=== PATIENT | female | born 1985 | race Caucasian/White ===

== ENCOUNTER 2022-01-14 10:52 | Outpatient (CLI) | payer OTHER, SELFPAY ==
--- NOTE | 2022-01-14 11:41 | CRLHL7_ITS ---
For Patients: As a result of the Century Cures Act, medical imaging exams and procedure reports are released immediately into your electronic medical record. You may view this report before your referring provider. If you have questions, please contact your health care provider. CLINICAL HISTORY: IUD check TECHNIQUE: 2D hidalgo scale and color Doppler images were acquired of the pelvis using a transvaginal approach. FINDINGS: On transvaginal imaging, the myometrium has a heterogeneous echotexture. There may be a fibroid in the uterine fundus. Intrauterine device located in good position within the endometrial canal. The left ovary measures 3.5 x 2.2 x 2.6 cm in size and the right ovary measures 3.0 x 1.3 x 1.4 cm. The ovaries demonstrate normal arterial and venous blood flow on color Doppler analysis. There are no suspicious fluid collections within the cul-de-sac. Trace physiologic free fluid noted. Simple left ovarian cyst is present measuring 2.3 x 1.7 x 2.2 cm. IMPRESSION: Normal position of the intrauterine device within the endometrial canal. Dictated by Davonte Barclay MD @ 01/14/2022 12:20:47 PM (Electronically Signed)
== END 2022-01-14 10:53 | disposition home or self-care (01) ==
PROVIDERS: Visit Provider Advanced Practice Midwife
DX: Z30.431 Encounter for routine checking of intrauterine contraceptive device (principal)
CPT/HCPCS: 76830

== ENCOUNTER 2023-06-11 08:01 | Emergency (ER) | payer OTHER, SELFPAY ==
[2023-06-11 08:08] VITALS: BP 107/70; PULSE 73; RESP 18; TEMP 36.7; O2SAT 100; BMI 24.9
--- NOTE | 2023-06-11 08:20 | CRLHL7_ITS ---
For Patients: As a result of the Cures Act, medical imaging exams and procedure reports are released immediately into your electronic medical record. You may view this report before your referring provider. If you have questions, please contact your health care provider. INDICATION: Right lower quadrant pain. TECHNIQUE: CT abdomen and pelvis acquired with 71 cc Isovue 370 IV contrast. COMPARISON: None. FINDINGS: Lower chest: Unremarkable. Liver: Unremarkable. Normal in size and attenuation. No suspicious masses. Gallbladder and bile ducts: Unremarkable. No stones or inflammation. No biliary dilatation. Pancreas: Unremarkable. No mass or inflammation. Spleen: Unremarkable. Normal in size. No masses. Adrenal glands: Unremarkable. No nodules. Kidneys: Unremarkable. No suspicious masses, stones, or hydronephrosis. GI tract: No acute findings. Normal caliber. No sign of inflammation. Multiple appendicolith ranging in size between 4 and 6 mm. Vasculature: Abdominal aorta is normal in caliber. Mesenteric arteries are patent. Lymph nodes: No lymphadenopathy. Peritoneum/Abdominal Wall: Unremarkable. No sign of mass or infiltration. No free air or significant free fluid. Pelvis: 2.3 cm right ovarian corpus luteum. T-shaped IUD within the central uterus. Bones: Unremarkable for age. IMPRESSION: Multiple appendicoliths. No evidence of acute appendicitis, however. Right ovarian corpus luteum. No evidence of hemoperitoneum to indicate a ruptured corpus luteal cyst. Please note that all CT scans at this facility use dose modulation, iterative reconstruction, and/or weight-based dosing when appropriate to reduce radiation dose to as low as reasonably achievable. Dictated by Bjorn Gore MD @ 06/11/2023 9:39:19 AM (Electronically Signed)
--- NOTE | 2023-06-11 08:21 | ED_ITS ---
HPI - Abdominal Pain General Date Seen: 06/11/23 Chief Complaint: Abdominal Pain Stated Complaint: abdominal pain Time Seen by Provider: 06/11/23 08:02 Source: patient Mode of arrival: ambulatory Limitations: no limitations History of Present Illness HPI narrative: patient is a 37-year-old female with no pertinent medical issues presenting to emergency department for lower abdominal pain. She says the pain is all across her lower abdominal region. She initially thought she was constipated at all and a mild home without improvement in her symptoms. Says the pain woke her up at 05:00 and has not gotten any better. Has never had pain like this. Only previous abdominal surgeries Were for C-sections. denies fevers, chills, lightheadedness, dizziness, diarrhea, chest pain, weakness, numbness , dysuria, polyuria. Is not aware of any sick contacts. Has not taken anything for pain yet. She has not had any associated nausea Related Data Home Medications Medication Instructions Recorded Confirmed levonorgestrel 21 mcg/24 hours (8 1 device intrauterine ONCE 01/14/22 08/24/22 yrs) 52 mg intrauterine device (Mirena) Previous Rx's Medication Instructions Recorded sumatriptan succinate 50 mg tablet 50 mg PO .PRN PRN migraine 02/01/23 headache #9 tabs Allergies Allergy/AdvReac Type Severity Reaction Status Date / Time No Known Drug Allergies Allergy Verified 01/14/22 10:28 Review of Systems Status of ROS Reports: 10 or more systems reviewed and unremarkable except as noted in History and below PFSH PFS Social History Smoking Status: Never smoker How often do you have a drink containing alcohol: monthly or less How many standard drinks containing alcohol do you have on a typical day: 1 or 2 How often do you have six or more drinks on one occasion: Never AUDIT-C Alcohol total score: 1 Non-prescribed substance use: denies use Little interest or pleasure in doing things: several days Feeling down, depressed, or hopeless: several days Exam Narrative: Exam Narrative: Const: Well-nourished, Well-developed, in mild distress Eyes: PERRL, no conjunctival injection, and symmetrical lids HENT: Atraumatic external nose and ears. Moist mucous membranes. Neck: Symmetric, trachea midline, No thyromegaly. CVS: RRR, No murmurs or gallops. Peripheral pulses 2+ and equal in all extremities RESP: Unlabored respiratory effort. Clear to auscultation bilaterally. GI: Tenderness to right lower quadrant around McBurney's point, Nondistended, No rebound or guarding. MSK:Extremities w/o deformity, Normal Active ROM Skin: Warm, Dry. No rashes or lesions. Neuro: Normal Muscle tone, No focal neurological deficits. Psych: Awake, Alert, & Oriented x3. Appropriate mood and affect. Const: Vital Signs, click to edit/add: Vital Signs - 24 hr 06/11/23 08:08 06/11/23 08:45 06/11/23 10:07 Temperature 98.0 F Pulse Rate [Right Pulse Oximeter] 73 71 Respiratory Rate 18 16 Blood Pressure [Ri ght Upper Arm] 107/70 113/71 Pulse Oximetry 100 99 96 Oxygen Delivery Me thod Room Air Room Air 06/11/23 12:24 Temperature Pulse Rate [Right Pulse Oximeter] 81 Respiratory Rate Blood Pressure [Ri ght Upper Arm] 115/68 Pulse Oximetry 100 Oxygen Delivery Me thod Room Air Course Vital Signs Vital signs: Initial Vital Signs Temperature 98.0 F 06/11/23 08:08 Temperature Source Temporal Artery Scan 06/11/23 08:08 Pulse Rate 73 06/11/23 08:08 Respiratory Rate 18 06/11/23 08:08 Blood Pressure 107/70 06/11/23 08:08 Blood Pressure Mean 82 06/11/23 08:08 Blood Pressure Position Sitting 06/11/23 08:08 Pulse Oximetry 100 06/11/23 08:08 Oxygen Delivery Method Room Air 06/11/23 08:08 Vital Signs Temperature 98.0 F 06/11/23 08:08 Pulse Rate 73 06/11/23 08:08 Respiratory Rate 18 06/11/23 08:08 Blood Pressure 107/70 06/11/23 08:08 Pulse Oximetry 100 06/11/23 08:08 Oxygen Delivery Method Room Air 06/11/23 08:08 Temperature 98.0 F 06/11/23 08:08 Pulse Rate 81 06/11/23 12:24 Respiratory Rate 16 06/11/23 10:07 Blood Pressure 115/68 06/11/23 12:24 Pulse Oximetry 100 06/11/23 12:24 Oxygen Delivery Method Room Air 06/11/23 12:24 Medications Administered Medications: Discontinued Medications Generic Name Dose Route Start Last Admin Trade Name Laura PRN Reason Stop Dose Admin Ketorolac Tromethamine 15 mg 06/11/23 09:52 06/11/23 09:58 Ketorolac 15 Mg/Ml Inj IVP 06/11/23 09:53 15 mg ONCE ONE Administration Morphine Sulfate 4 mg 06/11/23 08:20 06/11/23 08:42 Morphine 4 Mg/Ml Inj IM 06/11/23 08:21 Not Given ONCE ONE Morphine Sulfate 4 mg 06/11/23 08:38 06/11/23 08:41 Morphine 4 Mg/Ml Inj IVP 06/11/23 08:39 4 mg ONCE ONE Administration Ondansetron HCl 4 mg 06/11/23 08:20 06/11/23 08:41 Ondansetron 2 Mg/Ml Inj IVP 06/11/23 08:21 4 mg ONCE ONE Administration MDM - Abdominal Pain MDM Narrative Medical decision making narrative: patient is a 37-year-old female with sudden onset right lower quadrant abdominal pain awoke her up from her sleep. No previous abdominal surgeries. Present amount no improvement in her symptoms. She still has appendix as far she is aware. She does have tenderness to the right lower quadrant more specifically McBurney's point. At this time I a.m. concern for appendicitis. Really no pelvic pain it seems like being ovarian torsion is unlikely. Could also be cystitis. Water CBC, CMP, lipase, covid/ flu, urinalysis, test. CT scan with IV contrast also ordered. Morphine given for pain and Zofran for potential nausea. Cbc, CMP, lipase, urinalysis, COVID/flu all returned showing no concerning abnormalities. CT shows me multiple appendicoliths but no signs of acute appendicitis. Within normal white count this is making it appendicitis much more unlikely. She does have a 2.3 cm right corpus luteum cyst. This is rolled to the small it still could be causing his symptoms and we will order a ul trasound to better evaluate it. Ultrasound returned showing a normal appearing ovaries but they were able to see the appendix and there is concern it could be appendicitis. Recommend surgical consultation. I spoke to Dr. Carias about this patient. She states the patient is relatively early with symptoms called she and we just my not be seeing the signs of appendicitis yet due to that. Also could just not be appendicitis. She does not want to take a person surgery who does not definitely need it. She said options include admission for observation versus discharge home with close outpatient follow-up and strict return precautions. I spoke to the patient about these 2 options and they would prefer to be discharged home at this time. Dr. Carias and I agreed to starting the patient on antibiotics and the patient want Toradol for pain which was prescribed. I spoke along to the patient about worsening symptoms and other concerning symptoms to watch out for the could be a sign of appendicitis into have a low threshold to return to the emergency department. Her and her are agreeable to this and state they understand. She will be discharged home. Lab Data Labs: Lab Results 06/11/23 06/11/23 Range/Units 08:20 08:35 WBC 10.73 (4.50-11.00) K/uL RBC 4.62 (4.00-5.20) m/uL Hgb 14.1 (12.0-16.0) gm/dL Hct 41.7 (33.0-51.0) % MCV 90 (80-100) fL MCH 31 (26-34) pg MCHC 34 (32-36) gm/dL RDW Coeff of [place] 11.9 (11.5-15.5) % Plt Count 209 (140-440) K/uL Neut % (Auto) 80.0 H (42.0-72.0) % Lymph % (Auto) 13.5 L (20-44) % [place] % (Auto) 5.2 (0.0-11.0) % Eos % (Auto) 0.8 (0.0-7.0) % Baso % (Auto) 0.3 (0.0-3.0) % Neut # (Auto) 8.60 H (1.7-7.0) K/uL Lymph # (Auto) 1.40 (0.90-2.90) K/uL [place] # (Auto) 0.60 (0.00-0.90) K/UL Eos # (Auto) 0.09 (0.00-0.50) K/uL Baso # (Auto) 0.03 (0.00-0.30) K/uL Abs Immat Gran (auto) 0.02 (0.00-0.30) K/uL Imm/Tot Granulo (auto) 0.2 % Sodium 136 (135-149) mmol/L Potassium 4.0 (3.6-5.1) mmol/L Chloride 105 (96-114) mmol/L Carbon Dioxide 23 (20-32) mmol/L Anion Gap 8 (7-15) mEq/L BUN 13 (5-24) mg/dL Creatinine 0.7 (0.5-1.5) mg/dL Estimated Creat Clear 94.10 Estimated GFR 113 ml/min Glucose 103 (60-115) mg/dL Calcium 8.9 (8.4-10.6) mg/dL Total Bilirubin 1.2 (0.1-1.5) mg/dL AST 22 (12-35) U/L ALT 15 (4-35) U/L Alkaline Phosphatase 33 L (40-150) U/L Total Protein 7.2 (6.0-8.3) g/dL Albumin 4.6 (3.3-5.0) g/dL Lipase 79 (23-300) U/L Urine Color Yellow (Yellow) Urine Appearance Slightly Cloudy A (Clear) Urine pH 5.5 (5.0-8.5) Ur Specific [place] 1.025 (1.000-1.030) Urine Protein Negative (Negative) Urine Glucose (UA) Negative (Negative) Urine Ketones Negative (Negative) Urine Blood Trace-intact A (Negative) Urine Nitrite Negative (Negative) Urine Bilirubin Negative (Negative) Urine Urobilinogen 0.2 (0.2-1.0) Ur Leukocyte Esterase Trace A (Negative) Urine RBC 2-5 A (0-2) Urine WBC 2-5 (0-5) Urine WBC Clumps None (None) Ur Squamous Epith Cells Few (None-Few) Urine Bacteria Few A (None) Urine HCG, Qual Negative (Negative) SARS-CoV-2 (PCR) Negative SARS-CoV-2 (Negative) Influenza Type A (PCR) Negative PCR FLU A (Negative) Influenza Type B (PCR) Negative PCR FLU B (Negative) Imaging Data CT scan abdomen and pelvis: Radiologist's impression: Multiple appendicoliths. No evidence of acute appendicitis, however. Right ovarian corpus luteum. No evidence of hemoperitoneum to indicate a ruptured corpus luteal cyst. Please note that all CT scans at this facility use dose modulation, iterative reconstruction, and/or weight-based dosing when appropriate to reduce radiation dose to as low as reasonably achievable. Dictated by Bjorn Gore MD @ 06/11/2023 9:39:19 AM ECG Data Attestation: I personally reviewed and interpreted this ECG as follows: Prior ECG tracings: not available for review Interpretation: normal sinus rhythm the rate 62 beats per minute, normal intervals, normal axis, no ST or T-wave abnormalities. Discharge Plan Discharge Clinical Impression: Abdominal pain Qualifiers: Abdominal location: right lower quadrant Qualified Code(s): R10.31 - Right lower quadrant pain Patient Disposition: Home, Self-Care Condition: Improved Instructions: Abdominal Pain (ED) Additional Instructions: You will be discharged home with Toradol and Augmentin from instymeds. I spoke to Dr. Carias of general surgery. She states at this time is difficult to say if this is appendicitis or not. Incident urine otherwise healthy young female it is reasonable to let you discharged home. Take the medication as prescribed. If symptoms persist over the next day or 2 return to the emergency department for re-evaluation. Also return for fever, nausea, or any other symptoms that you are concerned about. Have a low threshold to return to the emergency department. Dr. Carias states she will try and get her office to follow-up with you on either Tuesday or Tuesday. If symptoms have fully resolved you not need to follow-up with her. With the antibiotics symptoms might go way then come back in a week so be aware over the next couple weeks. Do not take any other NSAIDs when you are taking Toradol. Prescriptions: No Action Mirena 20 mcg/24 hours (7 yrs) 52 mg intrauterine device 1 device intrauterine ONCE Rx Instructions: as a single dose sumatriptan succinate 50 mg tablet 50 mg PO .PRN PRN (Reason: migraine headache) Qty: 9 5RF Rx Instructions: ONE TAB AT ONSET OF HEADACHE, MAY REPEAT Q2H PRN, MAX 200 MG/24 HRS Follow Up/Referrals: Taurus Alicea PA-C [Primary Care Provider] - Stand Alone Forms: [employer] Info Instructions
--- OUTSIDE RECORDS SUMMARY | 2023-06-11 08:29 | XMS_ITS | Continuity of Care Document ---
Author Name Unknown Organization [facility] Address [address] [address] [place] [address] Phone Care Team Providers Care Wastewater Operator Name Role Phone Link Eric VILLA Unavailable Unavailable Allergies, Adverse Reactions, Alerts Substance Reaction Status Criticality No Known allergies Medications Medication Instructions Dosage Effective Dates (start - stop) Status Comments Probiotic 10 billion cell capsule take 1 Tablet by Oral route every day 1 Tablet - Active Culturelle 10 billion cell capsule take 1 Tablet by Oral route every day 1 Tablet - Active docusate sodium 100 mg capsule take 3 by Oral route 1times every day - Active FiberCon 625 mg tablet take 4 tablets orally everyday - Active OMEGA-3 (unknown strength) take 2 tablets everyday Not Available - Active multivitamin capsule take 1 capsule by oral route every day - Active Procedures Procedure Date Offic/outpt E&m New Mod Sever 2 Routine Serum Collection [id number] Basic Metabolic Panel Thyroid Stim Hormone Results Test Name Date and Time Measure Units Reference Range Abnormal Flag Status Comments Panel Description: Basic Metabolic Panel Final Calcium, Serum 2011 15:56:5 1 8.3 mg/dl 8.5-10.1 L Final Carbon Dioxide, Total 2011 15:56:5 1 27 mmol/L 21-32 Final Chloride, Serum 2011 15:56:5 1 105 mmol/L 98-107 Final Creatinine, Serum 2011 15:56:5 1 0.80 mg/dl 0.60-1.30 Final Glucose, Serum 2011 15:56:5 1 97 mg/dl 74-100 Final Potassium, Serum 2011 15:56:5 1 4.1 mmol/L 3.5-5.1 Final Sodium, Serum 2011 15:56:5 1 141 mmol/L 136-145 Final BUN 2011 15:56:5 1 14 mg/dl 5-22 Final BUN/Creatinine Ratio 2011 15:56:5 1 17.50 10.00-20.00 Final eGFR If Africn Am 2011 15:56:5 1 > 60 > 60 Final This calculati on is for Keerthi patients eGFR If NonAfricn Am 2011 15:56:5 1 > 60 > 60 Final This calculati on is for Non Keerthi patients ANGAP 2011 15:56:5 1 13.10 8.00-16.00 Final Panel Description: TSH Final TSH 2011 15:56:5 1 0.59 uIU/ml 0.36-5.00 Final Panel Description: IgA+t-Murray Final Immunoglobulin A, Qn, Serum 2011 13:19:0 0 102 mg/dL 70-400 Final Effective March 20, 2012, the reference interval for Immunoglobulin A, Qn, Serum will be changing to: 0 - 11 months 11 - 58 1 - 2 years 20 - 101 3 - 6 years 44 - 189 7 - 12 years 62 - 236 13 - 17 years 77 - 278 18 years and older 91 - 414Performed by:Sean Christy ([facility]) t-Transglutaminas e (tTG) IgA 2011 14:41:0 0 <2 U/mL 0-3 Final Negative 0 - 3 Weak Positive 4 - 10 Positive >10 . Tissue Transglutaminase (tTG) has been identified as the endomysial antigen. Studies have demonstr- ated that endomysial IgA antibodies have over 99% specificity for gluten sensitive enteropathy.Perfor med by:Sean TOMPKINS) Advance Directives Directive Yes / No Effective Date File Name Resuscitation Not Answered N/A N/A Life Support Not Answered N/A N/A Intubation Not Answered N/A N/A Antibiotics Not Answered N/A N/A IV Fluid Support Not Answered N/A N/A Tube Feed Not Answered N/A N/A Other Directive N/A N/A WARNING:The information contained in this section is historical and is provided for information only and does not constitute a legal document or any assurance that the information is still accurate. Please verify the information with the woods of the legal document before using it for clinical purposes. Encounters Encounter Description Practice Location Reason(s) For Visit Diagnoses Date Provider Providers Copied on Encounter Offic/outpt E&m New Mod Sever [facility], [address] [address], [place], [place], [id number], [place] tel:[phone] [facility] Irritable Bowel Syndrome (chief complaint) Constipation Unspecified Link MD Reyes. [address], [place], [place], [id number], [place]. tel:[phone] Referring Provider: Referral Self, USE FOR SELF REFERRALS. Family History Family Member Type Diagnosis Age At Onset First degree family history Problem (finding) No history of Cancer, colon First degree family history Problem (finding) No Family history of No history of Colon Polyps First degree family history Problem (finding) No history of Crohn's First degree family history Problem (finding) No history of Ulcerative Colitis Payers Payer name Insurance type Covered republican ID Dmitriy leonard(s) Tony [id number] Social History Type Description Quantity Date Captured Comments Alcohol Use Details Caffeine Use Details Unknown Tobacco Use Status No Information Smoking Status No Information Sex Female Chief Complaint And Reason For Visit From encounter dated '02/14/2012 15:30'. Irritable Bowel Syndrome (chief complaint) Reason For Referral Reason For Referral No Information History Of Present Illness Encounter Date Complaint History Of Prese nt Illness No Information Functional Status Date Functional Assessmen t No Information Instructions Date Instruction Additional Infor mation No Information Assessments Type Assessment Date No Information Patient Care Teams Name Effective Dates (start - stop) Status Members No Information
[2023-06-11 08:37] LABS: Appearance Urine Slightly Cloudy (Clear); Bilirubin Urine Negative (Negative); Blood Urine Trace-intact (Negative); Color Urine Yellow (Yellow); Glucose Urine Negative (Negative); Ketones Urine Negative (Negative); Leukocyte Esterase Urine Trace (Negative); Nitrite Urine Negative (Negative); Protein Urine Negative (Negative); Specific Gravity Urine 1.025 (1.000-1.030); Urobilinogen Urine 0.2 (0.2-1.0); pH Urine 5.5 (5.0-8.5)
[2023-06-11 08:38] LABS: Ur HCG Qualitative* Negative (Negative)
[2023-06-11] MEDS: ONDANSETRON 2 MG/ML inj 4 MG IVP (08:41)
[2023-06-11] MEDS: MORPHINE 4 MG/ML INJ IVP (08:41)
[2023-06-11 08:45] VITALS: O2SAT 99
[2023-06-11 08:47] LABS: Basophils Absolute Auto 0.03 K/uL (0.00-0.30); Basophils Percent Auto 0.3 % (0.0-3.0); Eosinophils Absolute Auto 0.09 K/uL (0.00-0.50); Eosinophils Percent Auto 0.8 % (0.0-7.0); Hematocrit 41.7 % (33.0-51.0); Hemoglobin* 14.1 gm/dL (12.0-16.0); Immature Granulocytes Abs Auto 0.02 K/uL (0.00-0.30); Immature Granulocytes Pct Auto 0.2 %; Lymphocytes Percent Auto 13.5 % (20-44); Mean Corpuscular HGB Conc 34 gm/dL (32-36); Mean Corpuscular Hemoglobin 31 pg (26-34); Mean Corpuscular Volume 90 fL (80-100); Monocytes Percent Auto 5.2 % (0.0-11.0); Platelet Count* 209 K/uL (140-440); RDW Coefficient of Variation % 11.9 % (11.5-15.5); Red Blood Count 4.62 m/uL (4.00-5.20); White Blood Count* 10.73 K/uL (4.50-11.00)
[2023-06-11 08:48] LABS: Squamous Epithelial Cell Urine Few (None-Few)
[2023-06-11 08:49] LABS: Slide Review Reflex No
[2023-06-11 08:51] LABS: Bacteria Urine Few
[2023-06-11 08:58] LABS: Albumin* 4.6 g/dL (3.3-5.0); Chloride* 105 mmol/L (96-114); Sodium* 136 mmol/L (135-149)
[2023-06-11 09:00] LABS: Creatinine* 0.7 mg/dL (0.5-1.5); Estimated Glomerular Filt Rate 113 ml/min
[2023-06-11 09:01] LABS: Alanine Aminotransferase* 15 U/L (4-35); Alkaline Phosphatase* 33 U/L (40-150); Anion Gap 8 mEq/L (7-15); Aspartate Amino Transferase* 22 U/L (12-35); Bilirubin Total* 1.2 mg/dL (0.1-1.5); Blood Urea Nitrogen* 13 mg/dL (5-24); Calcium* 8.9 mg/dL (8.4-10.6); Carbon Dioxide* 23 mmol/L (20-32); Glucose* 103 mg/dL (60-115); Lipase* 79 U/L (23-300); Total Protein* 7.2 g/dL (6.0-8.3)
[2023-06-11 09:39] LABS: PCR FLU A Negative PCR FLU A (Negative); PCR FLU B Negative PCR FLU B (Negative)
[2023-06-11 09:41] LABS: SARS PCR* Negative SARS-CoV-2 (Negative)
[2023-06-11] MEDS: KETOROLAC 15 MG/ML inj IVP (09:58)
[2023-06-11 10:07] VITALS: BP 113/71; PULSE 71; RESP 16; O2SAT 96
--- NOTE | 2023-06-11 10:07 | CRLHL7_ITS ---
For Patients: As a result of the Century Cures Act, medical imaging exams and procedure reports are released immediately into your electronic medical record. You may view this report before your referring provider. If you have questions, please contact your health care provider. INDICATION: RLQ PAIN HISTORY: Right lower quadrant abdominal pain. COMPARISON: CT of the abdomen pelvis, 06/11/2023. TECHNIQUE: Pelvic ultrasound. Transabdominal imaging of the pelvis was obtained. Color/spectral Doppler was performed to evaluate for ovarian torsion. Findings: Uterine corpus measures 7.6 x 3.4 x 4.5 cm. There is no endometrial or myometrial mass. IUD, which appears in expected position. The right ovary measures 4.4 x 2.4 x 2.8 cm. Left ovary measures 3.0 x 1.6 x 2.1 cm. There is no evidence on grayscale imaging, or color/spectral Doppler, for ovarian torsion. No significant free fluid in the pelvis. The region of pain corresponds with a blind-ending tubular structure with foci posterior acoustic shadowing. These are consistent with appendicoliths, and correlate well with the CT from 06/11/2023. These findings are suspicious for appendicitis. Suggest surgical consultation the correlation with the presence or absence of leukocytosis. Impression: 1. No evidence on grayscale imaging, or color/spectral Doppler, for ovarian torsion. 2. There is borderline dilation of the appendix, with multiple appendicoliths. Given the history of right lower quadrant pain, appendicitis should be considered. Surgical consultation is suggested. 3. There is no adnexal mass or significant free fluid in the rectovaginal pouch of Cristóbal. 4. Case reviewed with Dr. Javed, ELOISE, 06/11/23, 1331 hours. Dictated by Alejandro Bellamy MD @ 06/11/2023 1:32:27 PM Dictated by: Alejandro Bellamy MD @ 06/11/2023 13:32:39 (Electronically Signed)
[2023-06-11 12:24] VITALS: BP 115/68; PULSE 81; O2SAT 100
[2023-06-11 14:10] VITALS: BP 106/71; PULSE 78; RESP 16; TEMP 36.8; O2SAT 98
--- NOTE | 2023-06-11 15:27 | PM.EN ---
Chart Event Note Chart Event Note: Called by the ED regarding this patient with several hours of right lower quadrant pain - Images and radiology read reviewed. CT shows appendicoliths but no dilation or inflammation. Ultrasound done to evaluate ovaries showed a borderline dilated appendix. No fever or WBC though WBC is 10 - upper limits of normal. Very possibly could represent early appendicitis as symptoms started only about 7 hours prior. Discuss[address] with Dr. Javed options of admission for observation or having patient return to be seen if symptoms persist or worsen within the next day. Patient opted to d/c home. She was given toradol and antibiotics. If she does not return to the ER, I will check in with her on Tuesday from clinic to see if an appointment is needed. I did not examine the patient on this date.
== END 2023-06-11 14:12 | disposition home or self-care (01) ==
PROVIDERS: Emergency Provider Student in an Organized Health Care Education/Training Program; PCP Physician Assistant Medical
DX: R10.9 Unspecified abdominal pain (principal)
CPT/HCPCS: 36415; 74177; 76856; 80053; 81001; 81025; 83690; 85025; 87086; 87631; 93005; 93976; 94761; 96372; 96374; 96375; 99283; 99284; 99285; J1885; J2270; J2405; Q9967

== ENCOUNTER 2023-06-14 10:41 | Day surgery (SDC) | payer OTHER, SELFPAY ==
[2023-06-14] VITALS (10 sets, daily range): BP systolic 99–123; BP diastolic 69–79; PULSE 55–85; RESP 14–16; TEMP 36.4–36.6; O2SAT 98–100; BMI 24.9
[2023-06-14] MEDS: LACTATED RINGERS 1000 ML 1,000 ML 100 ML IV (11:00)
[2023-06-14] MEDS: SODIUM CHLORIDE 0.9 % (FLUSH) 10 ML SYRINGE IVF (11:00)
[2023-06-14] MEDS: PIPERACILLIN/TAZOBACTAM 3.375 GM INJ IVPB (12:05)
--- NOTE | 2023-06-14 12:19 | W.ANESCHARGE ---
Anesthesia Charges Start Date/Time Anesthesia Start Date: 06/14/23 Anesthesia Start Time: 11:48 Stop Date/Time Anesthesia Stop Date: 06/14/23 Anesthesia Stop Time: 12:48
--- NOTE | 2023-06-14 12:23 | W.ANESCHARGE ---
Anesthesia Charges Start Date/Time Anesthesia Start Date: 06/14/23 Anesthesia Start Time: 11:48 Stop Date/Time Anesthesia Stop Date: 06/14/23 Anesthesia Stop Time: 12:48
[2023-06-14] MEDS: BUPIVACAINE 0.25% 30 ML INJECTION (12:31)
--- NOTE | 2023-06-14 12:44 | P.GSOP_ITS ---
Operative Note Pre-op diagnosis: Acute appendicitis Post-op diagnosis: same Type of Procedure: Laparoscopic appendectomy Indications: The patient is a 37-year-old female who presented to the emergency department with right lower quadrant pain. workup revealed on ultrasound a upper limits of normal dilated appendix at the area of her pain. White count was normal in CT was unremarkable except for appendicolith and therefore she was sent home on antibiotics with instructions to follow up if symptoms are not resolved. She had improved, however when she was seen in clinic today she still did have quite a bit of tenderness in the right lower quadrant on palpation. We discussed options and, after discussion of risks and benefits, we mutually decided upon appendectomy as the appropriate next step. Procedure Description: After discussing the risks and benefits of the procedure, the patient signed informed consent.? The operative site was marked and the patient was brought to the operating room and placed on the operating table in supine position.? Care was taken to pad the patient's pressure points.?? The patient was then intu bated by anesthesia.?? The operative site was then prepped and draped in the usual sterile fashion.? A time-out was then performed. Entrance to the abdomen was obtained via a 5 mm optical trocar in the left upper quadrant. The abdomen was insufflated and briefly surveyed for any signs of injury. There were none. A 12 mm port was placed inferior to the umbilicus as well as a 5 mm port in the left lower quadrant. Both were done under direct vision. The patient was then placed in Trendelenburg position with the right side up. The small bowel was gently moved out of the way and the appendix was in view. It was mildly dilated however did not appear to be markedly inflamed. The appendix was grasped and pulled into view. A mesenteric window was created between the base of the appendix and the mesoappendix. An Endo-ELOY purple load stapler was then used to transect the appendix at its base. A vascular load stapler was then used to divide the mesoappendix. The staple lines were inspected for bleeding. There was none. The appendix was then removed from the abdomen using an Endo-Catch bag. The specimen was sent to pathology. I then ran the small bowel distal from the ligament of Treitz approximately 100 cm. There was no evidence of Meckel's diverticulum or any inflammation in the mesentery. I examined both ovaries. There was no hemorrhagic cyst. No purulence or inflammation in the pelvis. The uterus was examined. There was no obvious abnormality here. There was a small amount of serous fluid in the pelvis. the gallbladder also similarly appeared normal and soft. The abdomen was desufflated and the ports removed. The 12 mm port site fascia was closed with 0 Vicryl. The skin was then closed with absorbable subcuticular suture. Sterile dressings were then applied. Instrument sponge and needle counts were correct at the end of the case. The patient was then woken and transported to the PACU in stable condition. ? The patient tolerated the procedure well. Findings: Mildly dilated appendix. Small amount of serous fluid in the pelvis. No other inflammation to explain right lower quadrant pain. Anesthesia: GETA Surgeon: Penelope Carias MD Estimated blood loss (mL): 5 Specimen: Appendix Condition: stable Disposition: PACU Date of procedure: 06/14/23
[2023-06-14] MEDS: HYDROCODONE-ACETAMIN 5-325 MG 1 TAB PO (13:44)
== END 2023-06-14 13:58 | disposition home or self-care (01) ==
PROVIDERS: PCP Physician Assistant Medical; Visit Provider Surgery
PROC: 0DTJ4ZZ Resection of Appendix, Percutaneous Endoscopic Approach (ICD-10-PCS; CPT 44970; principal; 2023-06-14 11:30)
DX: K35.80 Unspecified acute appendicitis (principal)
CPT/HCPCS: 44970; 00840; 88304; A9270; J0330; J0665; J1100; J2250; J2405; J2543; J2704; J3010; J3490; J7120

== ENCOUNTER 2023-10-20 12:16 | Outpatient (CLI) | payer OTHER, SELFPAY ==
--- OUTSIDE RECORDS SUMMARY | 2023-10-20 12:20 | XMS_ITS | Clinical Summary ---
Author Name Unknown Organization [facility] Address [place], [place] [address] Care Team Providers Care Entertainment Musician Name Role Phone [facility] [place] Unavailable Unavailable [facility] Primary Care Provider Unavailabl e Allergies Active Allergy Reactions Criticality Noted Date Comments Blood-Group Specific Substance Other - Describe In Comment Field 03/21/2011 Pt has a probable passive anti-D due to RhIG given 02/26/11. Blood products may be Delayed. Medications No known medications Active Problems Problem Noted Date Diagnosed Date Mastitis 04/07/2011 Candidiasis of breast 04/07/2011 Other immediate h emorrhage, unspecified as to episode of care 03/25/2011 delivery 03/25/2011 Anemia, (648.24) 03/25/2011 Antepartum hemorrhage in second trimester 2010 S/P primary LST section at 23 5/7 weeks 03/24/2011 Hemorrhage from placenta previa, with delivery 0 03/24/2011 Resolved Problems Problem Noted Date Diagnosed Date Resolved Date Need for rhogam due to Rh negative mother 03/25/2011 03/25/2011 Hemorrhage from placenta previa, antepartum 03/21/2011 03/25/2011 Threatened premature labor, antepartum(644.03) 03/21/2011 03/25/2011 Immunizations Name Administration Dates Next Due Influenza A (H1N1), Inactivated 06/04/2009 Influenza Virus, Unspecified 04/23/2009 Influenza, IIV3 (Age 6-35 mos) 05/08/2014,2012,03/29/2012,04/09/2011 Influenza, IIV3 (Age >=3 years) 04/28/2010,05/07 Influenza, IIV4 03/30/2017,04/25/2015 Tdap 05/14/2016 Social History Tobacco Use Types Packs/Day Years Used Date Smoking Tobacco: Never Smokeless Tobacco: Never Alcohol Use Standard Drinks/Week Comments Yes 0 (1 standard drink = 0.6 oz pur e alcohol) social Sex and Gender Information Value Date Recorded Sex Assigned at Not on file Gender Identity Not on file Sexual Orientation Not on file Obstetrics History Para Term AB IAB SAB Ectopic Multiple Livin g Live Births 3 2 1 1 1 0 1 0 0 2 3 Date Outcome GA Total Labor Labor/2nd/3rd Weight Sex Delivery Anes PTL Dora A1 A5 Name Cl in 07/12 Term 41w 0d 6h 00m/ 3.97 kg (8 lb 12 oz) M Vag Local N Elzbieta ng trey Delivery Location:[facility] 01/07 SAB 16w 0d Dece ased timot Jr Delivery Location:[facility] Comments:chorio 03/24 23w 5d 0.67 kg (1 lb 7.6 oz) M Y Elzbieta ng 4 7 Marcial Delivery Location:[facility] Last Filed Vital Signs Vital Sign Reading Time Taken Comments Blood Pressure 94/62 03/10/2018 12:07 PM CDT Pulse 68 03/10/2018 12:07 PM CDT Temperature 37.1 ??C (98.8 ??F) 03/10/2018 12:07 PM C DT Respiratory Rate 18 03/27/2011 8:28 AM CDT Oxygen Saturation 99% 03/25/2011 7:35 AM CDT Inhaled Oxygen Concentration - - Weight 60.1 kg (132 lb 9.6 oz) 03/10/2018 12:07 PM CDT Height 162.8 cm (5' 4.08) 03/10/2018 12:07 PM C DT Body Mass Index 22.71 03/10/2018 12:07 PM CDT Plan of Treatment Health Maintenance Due Date Last Done Comments HIV for age 15-65 09/27/1999 Hepatitis C screening for age 18-79 2002 Depression screening for age 12+ 05/02/2018 05/02/2017 BMI (ht and wt on same day) for age 18+ 03/10/2019 03/10/2018, 06/13/2017, 05/02/2017, Additional history exists Pap test for age 21-65 06/15/2022 9, 06/15/2019, 06/19/2014, Additional history exists COVID-19 vaccine series ( - 2022-24 season) 2023 Influenza for age 9-49 03/11/2024 7, 04/25/2015, 04/28/2010, Additional history exists Tetanus booster 05/14/2026 05/14/2016 Tdap Completed 05/14/2016 Pneumococcal series for age 6-64 Aged Out No longer eligible based on patient's age to complete this topic Procedures Procedure Name Priority Date/Time Associated Diagnosis Comments ANALYTICAL CHEMISTRY TEACHER THIN PREP PAP SCREEN IMAGED Routine 06/15/2019 4:15 PM PUSHER OPERATOR from Last 3 Months or Most Recently Relevant to Health Maintenance Results * ANALYTICAL CHEMISTRY TEACHER THIN PREP PAP SCREEN IMAGED (06/15/2019 4:15 PM PUSHER OPERATOR) Case Report Gynecologic Cytology Report ? Case: [id number] ? Authorizing Provider: ??Chrystal Vega, GREGG ? Collected: ? 06/15/2019 1615 ? Ordering Location: ? [facility] ?Received: ?06/19/2019 0749 ? First Screen: ?Lissette Carlson ? Specimen: ?ANALYTICAL CHEMISTRY TEACHER ThinPrep Vial Screening, Cervical/Vaginal ? 06/26/2019 12:48 PM PUSHER OPERATOR [facility] INTERPRETATION/ RESULT NEGATIVE FOR INTRAEPITHELIAL LESION OR MALIGNANCY (NIL) (none) 06/26/2019 12:48 PM PUSHER OPERATOR [facility] IMEN ADEQUACY Satisfactory for evaluation Endocervical component present 06/26/2019 12:48 PM PUSHER OPERATOR [facility] HPV REQUEST HPV and PAP 06/26/2019 12:48 PM PUSHER OPERATOR [facility] Last Pap Date 06/19/2014 06/26/2019 12:48 PM PUSHER OPERATOR [facility] Last Pap Result NIL 12:48 PM PUSHER OPERATOR [facility] Comment:-HPV Menstrual Status 06/26/2019 12:48 PM PUSHER OPERATOR [facility] Comment:IUD Additional Information 06/26/2019 12:48 PM PUSHER OPERATOR [facility] Comment: Interpreted at [facility] - [address], [place] [address] Automated Review Successful 06/26/2019 12:48 PM PUSHER OPERATOR [facility] Comment:Specimen processed s uccessfully by automated supervisor in charge device, ThinPrep Imaging System, [employer] ANCILLARY TESTING ANALYTICAL CHEMISTRY TEACHER HPV Ordered, Please see separate report 06/26/2019 12:48 PM PUSHER OPERATOR [facility] Note The pap test is a screening technique, not a diagnostic procedure. ??It is used primarily to screen for squamous cancers and precursor lesions. ??Published studies have shown that it is subject to both false negative and false positive results. ??The pap test should not be used as the sole means to diagnose or exclude pre-malignant and malignant lesions. Cytology is screened and interpreted at [facility] - [address], [place] [address] and [facility] - [address] [place] [address]; [place] [address] and [facility] - [address]; [place] [address] and [facility] [address]; [place] [address] 06/26/2019 12:48 PM PUSHER OPERATOR [facility] Other (Cervical/Vagina l) 06/15/2019 4:15 PM PUSHER OPERATOR 06/19/2019 7:49 AM PUSHER OPERATOR Chrystal Vega NP PATHOLOGY/CYTOLOGY [facility] [address] [place] [address], [place] from Last 3 Months or Most Recently Relevant to Health Maintenance Advance Directives * Full Code (Latest Code Status on File) Date Activated Date Inactivated Comments 03/21/2011 6:44 AM 03/25/2011 1:27 AM Care Teams Entertainment Musician Relationship Specialty Start Date End Date Keren Cortes PCP - General 03/30/17 Jeanette Soto Perinatology [employer] Perinatology 04/07/11
[2023-10-21 00:19] LABS: Chlamydia DNA Amplified* NOT DETECTED (No Detected); GC DNA Amplified* NOT DETECTED (No Detected)
== END 2023-10-20 12:17 | disposition home or self-care (01) ==
LOC: FRMREF 12:18
PROVIDERS: PCP Physician Assistant Medical; Visit Provider Registered Nurse
DX: Z11.3 Encounter for screening for infections with a predominantly sexual mode of transmission (principal)
CPT/HCPCS: 87491; 87591

== ENCOUNTER 2024-08-24 14:58 | Outpatient (CLI) | payer OTHER, SELFPAY ==
[2024-08-24 18:24] LABS: Bacterial Vaginosis* Negative (Negative); Candida glab/krus NOT DETECTED (No Detected); Candida species NOT DETECTED (No Detected); Trichomonas vaginalis NOT DETECTED (No Detected)
== END 2024-08-24 14:59 | disposition home or self-care (01) ==
LOC: NFLDREF 14:59
PROVIDERS: PCP Physician Assistant Medical; Visit Provider Registered Nurse
DX: N89.8 Other specified noninflammatory disorders of vagina (principal); R30.0 Dysuria
CPT/HCPCS: 81513; 87086; 87481; 87661

== ENCOUNTER 2024-11-16 14:36 | Outpatient (CLI) | payer OTHER, SELFPAY ==
--- NOTE | 2024-11-16 14:40 | CRLHL7_ITS ---
For Patients: As a result of the Century Cures Act, medical imaging exams and procedure reports are released immediately into your electronic medical record. You may view this report before your referring provider. If you have questions, please contact your health care provider. INDICATION: BILATERAL SCREENING MAMMOGRAM, ASYMPTOMATIC 39 Y/O FEMALE COMPARISON: BASELINE TECHNIQUE: Digital mammogram in CC and MLO projections including computer-aided detection (CAD) and tomosynthesis. BREAST COMPOSITION: The breasts are heterogeneously dense, which may obscure small masses. FINDINGS: No suspicious findings. ASSESSMENT: BI-RADS 1 Negative RECOMMENDATION: Annual screening mammogram. A lay language report of this examination will be provided to the patient. Dictated by: Davonte Barclay MD @ 11/19/2024 12:06:47 (Electronically Signed)
== END 2024-11-16 14:37 | disposition home or self-care (01) ==
LOC: MAMMO 14:37
PROVIDERS: PCP Physician Assistant Medical; Visit Provider Physician Assistant Medical
DX: Z12.31 Encounter for screening mammogram for malignant neoplasm of breast (principal); R92.333 Mammographic heterogeneous density, bilateral breasts
CPT/HCPCS: 77063; 77067